=== PATIENT | male | born 1935 | race Caucasian/White ===

== ENCOUNTER 2021-10-11 12:08 | Outpatient (CLI) | payer MEDICARE | END 2021-10-11 12:09 | disposition home or self-care (01) | LOC: BURRAD 12:08 | PROVIDERS: ATTEND Family Medicine | DX: M67.911 Unspecified disorder of synovium and tendon, right shoulder (principal) ==

== ENCOUNTER 2021-12-10 23:29 | Inpatient (IN) | payer MEDICARE ==
[2021-12-11 00:46] LABS: #Basophils 0.1 thou/uL (0.0-0.2); #Lymphocytes 1.1 thou/uL (1.20-3.40); #Monocytes 0.9 thou/uL (0.11-0.59); #Neutrophils 8.4 thou/uL (1.40-6.50); %Basophils 0.6 % (0.0-1.0); %Lymphocytes 10.3 % (21.0-51.0); %Monocytes 8.6 % (0.0-10.0); %Neutrophils 80.5 % (42.0-75.0); Hemoglobin 14.4 g/dL (14.0-18.0); Mean Corpuscular HGB CONC 33.6 g/dL (32.0-36.0); Mean Corpuscular Volume 92.1 fL (78.0-98.0); Mean Platelet Volume 8.5 fL (7.4-10.4); Platelet Count 158 thou/uL (130-400); RBC Distribution Width 12.1 % (11.5-14.5); Red Blood Cell (RBC) Count 4.66 mill/uL (4.70-6.10); White Blood Cell (WBC) Count 10.4 thou/uL (4.8-10.8)
[2021-12-11 01:03] LABS: ALT (SGPT) 55 U/L (8-55); AST (SGOT) 57 U/L (5-34); Albumin 3.4 g/dL (3.4-4.8); Alkaline Phosphatase 88 U/L (40-110); Anion Gap 15 mmol/L (10-20); BUN (Urea Nitrogen) 24 mg/dL (8.4-25.7); Bilirubin, Total 1.2 mg/dL (0.2-1.2); CK (CPK) 191 U/L (30-200); Calc. Creatinine Clearance 0 mL/min (70-130); Calcium 8.3 mg/dL (7.8-10.44); Carbon Dioxide 29 mmol/L (23-31); Chloride 105 mmol/L (98-107); Globulin 2.7 g/dL (2.4-3.5); Glucose 104 mg/dL (83-110); Magnesium 2.1 mg/dL (1.6-2.6); Potassium 4.1 mmol/L (3.5-5.1); Protein, Total 6.1 g/dL (5.8-8.1); Sodium 145 mmol/L (136-145)
[2021-12-11 03:00] LABS: Bilirubin Negative (Negative); Blood, Urine Negative (Negative); Clarity Clear (Clear); Glucose, Urine (Dipstick) Negative (Negative); Ketone, Urine 40 mg/dL (Negative); Leukocyte Negative (Negative); Nitrite Negative (Negative); Protein, Urine (Dipstick) Negative (Neg-Trace); Urobilinogen 0.2 mg/dL (Less than 2)
[2021-12-11] MEDS ORDERED: Sodium Chloride 0.9% 1,000 ML IV SCH (04:00)
[2021-12-11] MEDS ORDERED: Ondansetron ODT 4 MG TAB SL PRN (04:00)
[2021-12-11] MEDS ORDERED: Acetaminophen 325 MG TAB PO PRN (04:00)
[2021-12-11] MEDS ORDERED: Ondansetron PF 4 MG/2 ML Vial IVP PRN (04:00)
[2021-12-11] MEDS: Dextrose 5 % And 0.9 % NaCl 1,000 ML IV SCH ×2 (08:41→20:18)
[2021-12-11] MEDS ORDERED: Ciprofloxacin Lactate/D5W 200 MG in Premix Bag 1 BAG IVPB SCH (09:00)
[2021-12-11 11:24] VITALS: BMI 13.8
[2021-12-11 15:43] LABS: SARS-CoV-2 PCR by NAA DETECTED (NotDetected)
[2021-12-11] MEDS ORDERED: Acetaminophen 650 MG Suppository PR PRN (21:02)
[2021-12-12] MEDS: Dextrose 5 % And 0.9 % NaCl 1,000 ML IV SCH ×3 (06:58→17:50)
[2021-12-13 05:31] LABS: Anion Gap 9 mmol/L (10-20); BUN (Urea Nitrogen) 8 mg/dL (8.4-25.7); Calc. Creatinine Clearance 57 mL/min (70-130); Calcium 7.6 mg/dL (7.8-10.44); Carbon Dioxide 27 mmol/L (23-31); Chloride 109 mmol/L (98-107); Glucose 100 mg/dL (83-110); Sodium 142 mmol/L (136-145)
[2021-12-13] MEDS: Dextrose 5 % And 0.9 % NaCl 1,000 ML IV SCH (13:13)
[2021-12-13 13:48] LABS: SARS-CoV-2 PCR by NAA DETECTED (NotDetected)
[2021-12-13] MEDS ORDERED: REMDESIVIR 100 MG in Sodium Chloride 0.9% 250 ML 230 ML IV SCH (15:30)
[2021-12-13] MEDS ORDERED: REMDESIVIR 200 MG in Sodium Chloride 0.9% 250 ML 210 ML IV SCH (15:45)
[2021-12-13] MEDS: Enoxaparin Sodium 30 MG/0.3 ML SYRINGE SC SCH (21:51)
[2021-12-14] MEDS: Potassium Chloride 20 MEQ TAB PO SCH (09:13)
[2021-12-14] MEDS ORDERED: REMDESIVIR 100 MG in Sodium Chloride 0.9% 250 ML 230 ML IV SCH (15:45)
[2021-12-14] MEDS: Enoxaparin Sodium 30 MG/0.3 ML SYRINGE SC SCH (20:48)
[2021-12-15] MEDS: Potassium Chloride 20 MEQ TAB PO SCH (09:40)
[2021-12-15] MEDS ORDERED: Tobramycin 0.3% Ophth Oint 3.5 GM TUBE R EYE SCH (21:00)
[2021-12-15] MEDS: Enoxaparin Sodium 30 MG/0.3 ML SYRINGE SC SCH (22:31)
[2021-12-15] MEDS: Tobramycin 0.3% Ophth Oint 3.5 GM TUBE EA EYE SCH (22:32)
[2021-12-16] MEDS ORDERED: Erythromycin Base 0.5% Ophth Oint 3.5 gm Tube EA EYE SCH (10:15)
[2021-12-16] MEDS ORDERED: Erythromycin Base 0.5% Ophth Oint 3.5 gm Tube ONE (11:27)
[2021-12-16] MEDS: Tobramycin 0.3% Ophth Oint 3.5 GM TUBE EA EYE SCH (17:52)
[2021-12-16] MEDS: Enoxaparin Sodium 30 MG/0.3 ML SYRINGE SC SCH (21:22)
[2021-12-16] MEDS: Erythromycin Base 0.5% Ophth Oint 3.5 gm Tube EA EYE SCH (21:23)
[2021-12-17] MEDS: Erythromycin Base 0.5% Ophth Oint 3.5 gm Tube EA EYE SCH (10:40)
[2021-12-17 13:32] LABS: Anion Gap 12 mmol/L (10-20); BUN (Urea Nitrogen) 13 mg/dL (8.4-25.7); Calc. Creatinine Clearance 52 mL/min (70-130); Carbon Dioxide 26 mmol/L (23-31); Chloride 101 mmol/L (98-107); Glucose 96 mg/dL (83-110); Potassium 4.1 mmol/L (3.5-5.1); Sodium 135 mmol/L (136-145)
[2021-12-17 15:26] VITALS: BP 119/58; TEMP 97.8
== END 2021-12-17 17:50 | disposition short-term general hospital (02) | DRG 640 ==
LOC: BURERS 23:29 → INTOOBSV 12-11 03:12 → OBSVTOIN 12-11 03:12 → UNDOADMOB 12-11 03:12 → BURMED 12-11 03:12 → OBSVTOIN 12-12 17:00 → BURMED 12-12 17:00
PROVIDERS: ADMIT Family Medicine; ATTEND Family Medicine
DX: E86.0 Dehydration (principal); U07.1 COVID-19; N39.0 Urinary tract infection, site not specified; Z68.1 Body mass index [BMI] 19.9 or less, adult; R62.7 Adult failure to thrive; J43.9 Emphysema, unspecified; R09.02 Hypoxemia; F17.210 Nicotine dependence, cigarettes, uncomplicated; M19.90 Unspecified osteoarthritis, unspecified site; L89.151 Pressure ulcer of sacral region, stage 1; Z60.2 Problems related to living alone; E86.1 Hypovolemia; Z87.440 Personal history of urinary (tract) infections; Z88.1 Allergy status to other antibiotic agents
CPT/HCPCS: 36415; 70450; 71045; 80048; 80053; 81003; 82550; 83735; 83880; 84484; 85025; 87040; 87086; 93005; 94760; 96374; 96376; G0378; J1650; J1956; J7042; J7050; U0003; U0005